=== PATIENT | female | born 1955 | race Caucasian/White ===

== ENCOUNTER 2024-07-15 09:20 | Outpatient (CLI) | payer MEDICARE, SELFPAY ==
[2024-07-15] MEDS: ALBUTEROL 0.083% 2.5 MG/3 ML NEB IH (11:26)
== END 2024-07-15 23:59 | disposition home or self-care (01) ==
LOC: RT 09:22
PROVIDERS: PCP Nurse Practitioner Family; Visit Provider Nurse Practitioner Family
DX: R05.9 Cough, unspecified (principal)
CPT/HCPCS: 94060; 94726; 94729; J7613

== ENCOUNTER 2024-07-20 07:44 | Outpatient (CLI) | payer MEDICARE, SELFPAY ==
--- NOTE | 2024-07-20 07:49 | US_ITS ---
FINAL REPORT CLINICAL HISTORY: RT BREAST MASS - DR.ALEX HOOVER - 12:00 - MAMMOTOME USED FINDINGS: ULTRASOUND-GUIDED RIGHT BREAST CORE BIOPSY HISTORY: abn mammo left breast, UOQ; R92.8-Other abnormal and inconclusive findings on diagnostic imaging of breast TECHNIQUE: The right breast was prepped in a routine sterile fashion and locally anesthetized with 1% lidocaine. The hyperechoic shadowing lesion of interest was identified within the right breast at 12:00. An 11-gauge vacuum-assisted hand-held device was utilized. The needle was positioned posterior to the lesion. Multiple vacuum assisted core samples were obtained. Lesion was noted to be significantly smaller following biopsy. A biopsy marker clip was deployed in satisfactory position. A post biopsy mammogram was performed and dictated separately. Limited postbiopsy images showed no evidence of significant hemorrhage. Marker clip is noted to be in satisfactory position. Procedure was well tolerated. IMPRESSION: 1. Technically successful guided vacuum assisted core biopsy of right breast lesion as above. 2. 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 Pathology is concordant with mammographic findings. Recommend 6-month sonographic and mammographic follow-up as routine post benign biopsy surveillance. Follow-up should be done at the original facility recommending biopsy given prebiopsy exams available at that location for comparison. Authenticated and ERN
--- NOTE | 2024-07-20 08:53 | MM_ITS ---
FINAL REPORT CLINICAL HISTORY: S/P BX, CLIP PLACEMENT FINDINGS: MAMMOGRAM RIGHT 2D TECHNIQUE: Standard digital 2D views COMPARISON: Outside exam is available DENSITY: There are scattered areas of fibroglandular density FINDINGS: Post biopsy marker clip is noted in satisfactory position at approximately 12:00. Postbiopsy changes are noted. 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 Pathology is concordant with mammographic findings. Recommend 6-month sonographic and mammographic follow-up as routine post benign biopsy surveillance. Follow-up should be done at the original facility recommending biopsy given prebiopsy exams available at that location for comparison. Authenticated and ERN
== END 2024-07-20 23:59 | disposition home or self-care (01) ==
LOC: RAD 07:46
PROVIDERS: PCP Nurse Practitioner Family; Visit Provider Nurse Practitioner Family
DX: R92.8 Other abnormal and inconclusive findings on diagnostic imaging of breast (principal)
CPT/HCPCS: 19083; 77065; 88305; 88341; 88342; C2618